=== PATIENT | male | born 1930 | race Caucasian/White ===

== ENCOUNTER 2017-06-21 11:35 | Inpatient (IN) | payer OTHER ==
--- NOTE | 2017-06-21 11:55 | EDPHY ---
H & P Stated Complaint: Balance and speech issues yesterday. sent by PCP Time Seen by Provider: 06/21/17 11:55 HPI/ROS: CHIEF COMPLAINT: Mild dysarthria, right facial weakness, slight gait imbalance HISTORY OF PRESENT ILLNESS: The patient presents to the ED with a 1 day history of mild dysarthria, right facial weakness and a slight gait imbalance. The patient reports his symptoms began at 9 o'clock in the morning yesterday. They have not resolved. The patient denies prior history of TIA or CVA. The patient denies history of hypertension or diabetes. He has a history of hyperlipidemia but is not on medications for this condition. The patient denies any history of fall or trauma. He denies headache or neck pain. The patient denies any peripheral complaints of numbness or weakness. REVIEW OF SYSTEMS: A comprehensive 10 point review of systems is otherwise negative aside from elements mentioned in the history of present illness. Source: Patient Exam Limitations: No limitations - Personal History Current Tetanus Diphtheria and Acellular Pertussis (TDAP): Yes - Medical/Surgical History Hx Asthma: No Hx Chronic Respiratory Disease: No Hx Diabetes: No Hx Cardiac Disease: No Hx Renal Disease: No Hx Cirrhosis: No Hx Alcoholism: No Hx HIV/AIDS: No Hx Splenectomy or Spleen Trauma: No Other PMH: Gerd. - Social History Smoking Status: Never smoked - Physical Exam Exam: General Appearance: Alert, no distress Eyes: Pupils equal and round no pallor or injection ENT, Mouth: Mucous membranes moist Respiratory: There are no retractions, lungs are clear to auscultation Cardiovascular: Regular rate and rhythm Gastrointestinal: Abdomen is soft and nontender, no masses, bowel sounds normal Neurological: Right facial droop, 5/5 strength bilateral upper lower extremity , sensation intact to light touch Skin: Warm and dry, no rashes Musculoskeletal: Neck is supple nontender Extremities: symmetrical, full range of motion Constitutional: Initial Vital Signs Temperature (C) 36.3 C 06/21/17 11:42 Heart Rate 85 06/21/17 11:42 Respiratory Rate 18 06/21/17 11:42 Blood Pressure 163/103 H 06/21/17 11:42 O2 Sat (%) 96 06/21/17 11:42 O2 Delivery Mode Room Air Allergies/Adverse Reactions: Penicillins Allergy (Verified 06/21/17 11:46) Home Medications: Medication Instructions Recorded Antacid 06/21/17 Medical Decision Making - Diagnostics EKG Interpretation: EKG: Complete interpretation has been separately recorded in the [facility] archive. Summary impression: Sinus rhythm Imaging Results: Imaging Impressions Brain MRI 06/21/17 12:01 Impression: 1. Acute lacunar infarct in the posterior left lentiform nuclei and posterior left internal capsule. 2. Minimal underlying periventricular and deep hemispheric white matter change that can be seen with small vessel ischemic disease. 3. Generalized cerebral atrophy. 4. Left sphenoid sinusitis. Results called and discussed with Dr. Ghanshyam Odnonell on June 21, 2017 at 1451 hours. MRI brain without contrast: Images reviewed by myself and discussed with radiologist Dr. Weaver. Patient does have a small lacunar infarcts noted in the posterior capsule. ED Course/Re-evaluation: The patient presents to the ED with a mild facial droop, slight dysarthria and subjective gait imbalance that began at 9 o'clock in the morning yesterday. The patient's NIH stroke scale is 1-2 for a slight facial droop and slight dysarthria. MRI of the brain does demonstrate a small lacunar stroke. The patient did receive a 325 mg dose of aspirin. He is noted to be in a normal sinus rhythm. The patient will be admitted to the hospital for further evaluation and risk stratification having sustained an acute stroke. Consultation was made with the hospitalist service. The patient will be admitted by Dr. Ioana Zheng. The patient is not a candidate for thrombolytics therapy based upon the timing of his symptoms. Differential Diagnosis: Differential diagnosis considered includes ischemic stroke, intracranial hemorrhage, [employer] mass, migraine variant, Barber's palsy - Data Points Laboratory Results: Laboratory Results 06/21/17 11:54 06/21/17 11:54 06/21/17 06/21/17 06/21/17 11:54 11:54 11:54 WBC 5.99 10^3/uL 10^3/uL (3.80-9.50) RBC 4.81 10^6/uL 10^6/uL (4.40-6.38) Hgb 15.2 g/dL g/dL (13.7-17.5) Hct 44.2 % % (40.0-51.0) MCV 91.9 fL fL (81.5-99.8) MCH 31.6 pg pg (27.9-34.1) MCHC 34.4 g/dL g/dL (32.4-36.7) RDW 13.2 % % (11.5-15.2) Plt Count 177 10^3/uL 10^3/uL (150-400) MPV 10.5 fL fL (8.7-11.7) Neut % (Auto) 71.0 % % (39.3-74.2) Lymph % (Auto) 18.4 % % (15.0-45.0) [place] % (Auto) 8.3 % % (4.5-13.0) Eos % (Auto) 1.3 % % (0.6-7.6) Baso % (Auto) 0.7 % % (0.3-1.7) Nucleat RBC Rel Count 0.0 % % (0.0-0.2) Absolute Neuts (auto) 4.25 10^3/uL 10^3/uL (1.70-6.50) Absolute Lymphs (auto) 1.10 10^3/uL 10^3/uL (1.00-3.00) Absolute Monos (auto) 0.50 10^3/uL 10^3/uL (0.30-0.80) Absolute Eos (auto) 0.08 10^3/uL 10^3/uL (0.03-0.40) Absolute Basos (auto) 0.04 10^3/uL 10^3/uL (0.02-0.10) Absolute Nucleated RBC 0.00 10^3/uL 10^3/uL (0-0.01) Immature Gran % 0.3 % % (0.0-1.1) Immature Gran # 0.02 10^3/uL 10^3/uL (0.00-0.10) Sodium 144 mEq/L mEq/L (135-145) Potassium 4.7 mEq/L mEq/L (3.5-5.2) Chloride 108 mEq/L mEq/L (97-110) Carbon Dioxide 23 mEq/l mEq/l (22-31) Anion Gap 13 mEq/L mEq/L (8-16) BUN 20 mg/dL mg/dL (7-23) Creatinine 1.2 mg/dL mg/dL (0.7-1.3) Estimated GFR 58 Glucose 80 mg/dL mg/dL (70-100) Hemoglobin A1c Pending Estim Average Glucose Pending Calcium 9.9 mg/dL mg/dL (8.5-10.4) Medications Given: Discontinued Medications Aspirin (Aspirin) 325 mg PO EDNOW ONE Stop: 06/21/17 14:50 Last Admin: 06/21/17 14:55 Dose: 325 mg Departure - Departure [facility] Clinical Impression: Acute ischemic stroke Condition: Good Referrals: Joe Glasgow MD [Primary Care Provider] - As per Instructions
--- NOTE | 2017-06-21 12:01 | CPEKG ---
Heart Rate: 75 RR Interval: 800 P-R Interval: 160 QRSD Interval: 86 QT Interval: 400 QTC Interval: 447 P [place]: 71 QRS [place]: -38 T Wave [place]: 28 EKG Severity - OTHERWISE NORMAL ECG - EKG Impression: SINUS RHYTHM EKG Impression: LEFT AXIS DEVIATION Electronically Signed By: Ghanshyam Odonnell 21-Jun-2017 15:08:56
[2017-06-21 12:03] LABS: PLATELET COUNT 177 10^3/uL (150-400)
[2017-06-21] MEDS ORDERED: ASPIRIN 325 MG TAB PO ONE (14:49)
[2017-06-21] MEDS ORDERED: ONDANSETRON 4 MG/2 ML VIAL IVP PRN (14:56)
[2017-06-21] MEDS ORDERED: ONDANSETRON DISINTEGRATING 4 MG TAB PO PRN (14:56)
[2017-06-21] MEDS ORDERED: LABETALOL HCL 5 MG/ML 20 ML MDV IVP PRN (14:56)
[2017-06-21] MEDS ORDERED: ACETAMINOPHEN 325 MG TAB PO PRN (14:56)
[2017-06-21] MEDS ORDERED: ATORVASTATIN CALCIUM 40 MG TAB PO SCH (15:15)
--- NOTE | 2017-06-21 15:22 | PDGENHP ---
History and Physical - Chief Complaint slurred speech - History of Present Illness 86 yo male with h/o hyperlipidemia presents with balance issues. He noticed feeling "clutzy" and had balance problems soon after waking up. His family came home later in the afternoon and when he began to speak to them he noticed he was slurring his words. He saw his PCP in [place] who promptly sent him to the ED. He says he was last normal Wednesday night. He denied focal weakness , numbness or facial asymmetry. No CP or SOB. No fiore or vision changes. In the ED, MRI showed an acute lacunar infarct. He was given a full dose aspirin and is admitted to the hospital for further management. History Information - Allergies/Home Medication List Allergies/Adverse Reactions: Penicillins Allergy (Verified 06/21/17 11:46) Home Medications: Antacid 06/21/17 [Last Taken Unknown] I have personally reviewed and updated: family history, medical history, social history, surgical history - Past Medical History hyperlipidemia Additional medical history: Pre-diabetes, borderline htn, gerd, allergies, arthritis - Surgical History Additional surgical history: small orthopedic surgeries on wrist, thumb - Family History Additional family history: brother with hypertension - Social History Smoking Status: Former smoker Alcohol Use: Rarely Drug Use: None Additional social history: quit tobacco mid s. 20-30 pack year history, smoked a pipe. Review of Systems Review of Systems: ROS: 10pt was reviewed & negative except for what was stated in HPI & below Physical Exam Physical Exam: Temp Pulse Resp BP Pulse Ox 36.3 C 66 16 152/94 H 96 06/21/17 11:42 06/21/17 14:00 06/21/17 14:00 06/21/17 14:00 06/21/17 14:00 Constitutional: no apparent distress Eyes: PERRL Ears, Nose, Mouth, Throat: moist mucous membranes Cardiovascular: regular rate and rhythym Respiratory: no respiratory distress, clear to auscultation Gastrointestinal: normoactive bowel sounds, soft, non-tender abdomen Skin: warm Musculoskeletal: full muscle strength Neurologic: AAOx3, other (+dysarthria, no aphasia, no facial asymmetry, pronator drift neg, no focal weakness) Psychiatric: interacting appropriately Lab Data & Imaging Review 06/21/17 11:54 06/21/17 11:54 WBC 5.99 10^3/uL (3.80-9.50) 06/21/17 11:54 RBC 4.81 10^6/uL (4.40-6.38) 06/21/17 11:54 Hgb 15.2 g/dL (13.7-17.5) 06/21/17 11:54 Hct 44.2 % (40.0-51.0) 06/21/17 11:54 MCV 91.9 fL (81.5-99.8) 06/21/17 11:54 MCH 31.6 pg (27.9-34.1) 06/21/17 11:54 MCHC 34.4 g/dL (32.4-36.7) 06/21/17 11:54 RDW 13.2 % (11.5-15.2) 06/21/17 11:54 Plt Count 177 10^3/uL (150-400) 06/21/17 11:54 MPV 10.5 fL (8.7-11.7) 06/21/17 11:54 Neut % (Auto) 71.0 % (39.3-74.2) 06/21/17 11:54 Lymph % (Auto) 18.4 % (15.0-45.0) 06/21/17 11:54 [place] % (Auto) 8.3 % (4.5-13.0) 06/21/17 11:54 Eos % (Auto) 1.3 % (0.6-7.6) 06/21/17 11:54 Baso % (Auto) 0.7 % (0.3-1.7) 06/21/17 11:54 Nucleat RBC Rel Count 0.0 % (0.0-0.2) 06/21/17 11:54 Absolute Neuts (auto) 4.25 10^3/uL (1.70-6.50) 06/21/17 11:54 Absolute Lymphs (auto) 1.10 10^3/uL (1.00-3.00) 06/21/17 11:54 Absolute Monos (auto) 0.50 10^3/uL (0.30-0.80) 06/21/17 11:54 Absolute Eos (auto) 0.08 10^3/uL (0.03-0.40) 06/21/17 11:54 Absolute Basos (auto) 0.04 10^3/uL (0.02-0.10) 06/21/17 11:54 Absolute Nucleated RBC 0.00 10^3/uL (0-0.01) 06/21/17 11:54 Immature Gran % 0.3 % (0.0-1.1) 06/21/17 11:54 Immature Gran # 0.02 10^3/uL (0.00-0.10) 06/21/17 11:54 Sodium 144 mEq/L (135-145) 06/21/17 11:54 Potassium 4.7 mEq/L (3.5-5.2) 06/21/17 11:54 Chloride 108 mEq/L (97-110) 06/21/17 11:54 Carbon Dioxide 23 mEq/l (22-31) 06/21/17 11:54 Anion Gap 13 mEq/L (8-16) 06/21/17 11:54 BUN 20 mg/dL (7-23) 06/21/17 11:54 Creatinine 1.2 mg/dL (0.7-1.3) 06/21/17 11:54 Estimated GFR 58 06/21/17 11:54 Glucose 80 mg/dL (70-100) 06/21/17 11:54 Calcium 9.9 mg/dL (8.5-10.4) 06/21/17 11:54 Visualized and Interpreted EKG results: Yes EKG Interpretation: Positive for: normal sinsus rhythm Assessment & Plan Assessment: Acute CVA - Last seen normal >24 hrs prior to presentation. Mild dysarthria and gait instability persist. NIHSS 3. MRI showed acute lacunar infarcts. Discussed with Dr. Vargas. -admit to neuro unit -CTA head and neck now -received full dose ASA, will continue daily -check lipid panel in am, though pt refusing statin (states has tried 3 and gets leg cramps) -tele monitoring, likely warrants outpt cardiac event monitor at d/c if no A fib seen here -permissive htn, tx for SBP >220, DBP >120, will likely need anti- hypertensives at d/c with goal BP <140/90 -echo pending -neuro checks, swallow screen, PT/OT planned -neurology consult in am Hypertension - permissive hypertension for now as above with PRN Labetalol for BP >220/120 Arthritis - pt has taken regular NSAID's for pain. Discussed increased bleeding risk with addition of ASA -scheduled high dose tylenol, defer NSAID's for now Pre-diabetes - presenting BG 80. Not on insulin or oral hypoglycemics -send a1c Full code DVT PPLX - Lovenox Dispo - obs
[2017-06-21] MEDS ORDERED: FAMOTIDINE 20 MG TAB PO PRN (16:47)
[2017-06-21] MEDS ORDERED: IOPAMIDOL (ISOVUE 370) 100 ML BTL IV ONE (16:52)
--- NOTE | 2017-06-21 17:56 | ECHO ---
[email or web address] [address] [address] Main: [phone] Fax: [email or web address] Echocardiogram Name: CLEVELAND TRINIDAD MR#: [id number] Study Date: 06/21/2017 Study Time: 03:54 PM Date of : 1930 Age: 86 year(s) Height: 165.1 cm (65 in.) Weight: 54.43 kg (120 lb.) BSA: 1.59 m2 Gender: Male Examination: Echo Indication: Ischemic stroke Image Quality: Contrast: Requested by: Ioana Zheng BP: / Heart Rate: Rhythm: Indication: Ischemic stroke Procedure Staff Food Safety Scientist: Maria E Ramírez [facility] Reading Physician: Shereen Solomon MD Requesting Provider: Conclusions: Normal size left ventricle. Mild concentric LV hypertrophy. Normal global systolic LV function. The ejection fraction is estimated to be 65-70 %. No regional wall motion abnormality. An agitated saline study was performed and was negative for intracardiac shunting. Mild tricuspid regurgitation is present. The pulmonary artery pressure is normal. There is no previous echocardiogram for comparison. Measurements: Chambers Valvular Assessment AV/MV Valvular Assessment TV/PV Normal Normal Normal Name Value Range Name Value Range Name Value Range Ao Yaneli (MM): 3.4 cm (2.2 cm-3.7 AV Vmax: 1.03 m/s (1 m/s-1.7 TR Vmax: 2.69 mm/s ( - ) cm) m/s) TR PGmax: 29 mmHg ( - ) IVSd (2D): 0.9 cm (0.6 cm-1.1 AV maxP mmHg ( - ) syst. PAP: 34 mmHg ( - ) cm) AV meanP mmHg ( - ) LVDd (2D): 4.0 cm (4.2 cm-5.9 cm) LVDs (2D): 2.7 cm (2.1 cm-4 cm) LVPWd (2D): 1.0 cm (0.6 cm-1 cm) LVEF (MOD4): 63 % (>=55 %) EF Range: 65-70 % Continued Measurements: Chambers Valvular Assessment AV/MV Valvular Assessment TV/PV Patient: CLEVELAND TRINIDAD Study Date: 06/21/2017 Page 1 of 2 03:54 PM Name Value Name Value Name Value LADs: 2.8 cm MV A' Septal: 0.69 m/s CVP (est.): 5 mmHg Additional Vessels Name Value Ao Ascendin.6 cm Findings: Left Ventricle: Normal size left ventricle. Mild concentric LV hypertrophy. Normal global systolic LV function. The ejection fraction is estimated to be 65-70 %. No regional wall motion abnormality. Right Ventricle: Normal size right ventricle. Normal RV function. Left Atrium: The left atrium is normal in size. An agitated saline study was performed and was negative for intracardiac shunting. Right Atrium: The right atrium is normal in size. Mitral Valve: Mild mitral annular calcification. Trivial mitral valve regurgitation. Aortic Valve: The aortic valve is normal in appearance and function. Tricuspid Valve: The tricuspid valve is normal in appearance and function. Mild tricuspid regurgitation is present. The pulmonary artery pressure is normal. Pulmonic Valve: The pulmonic valve is normal in appearance and function. Mild pulmonic valve regurgitation is noted. Aorta: The aorta is normal. Pericardium: No pericardial effusion. (No Signature Object) Patient: CLEVELAND TRINDIAD Study Date: 06/21/2017 Page 2 of 2 03:54 PM [id number]
[2017-06-21] MEDS: ACETAMINOPHEN 500 MG TAB PO SCH (17:57)
[2017-06-22] MEDS: ACETAMINOPHEN 500 MG TAB PO SCH ×2 (00:55→09:24)
--- NOTE | 2017-06-22 08:19 | GCON ---
[f rep st] CONSULTATION NEUROLOGIC CONSULTATION REFERRING PHYSICIAN: Ioana Zheng MD HISTORY: The patient is an 86-year-old gentleman who is presenting with a chief complaint of slurred speech. The onset of his deficits was 48 hours ago. He had gotten up two2 days ago and was able to walk his dog, but knew he felt a little bit dizzy and thought he was a little discoordinated with hi s hands. He could not notice a clear-cut asymmetry. He then recognized he had some mild slurring of speech. His came home and definitely knew something was abnormal at 5 p.m. that day. He talke d to the primary care provider yesterday and he had advised that the patient go to the emergency room for evaluation. He is followed by Dr. Glasgow in [place] where the patient lives and is retired and fully independent. He has never had any TIA or prior stroke. He says that his symptoms feel abo ut the same today. When he came to the hospital, he had a brain MRI which showed an acute small isch emic infarction in the left basal ganglia region just lateral to the thalamus. He has subsequently c ontinued with about the same symptoms. He denies any headache. No chest pain, palpitations, or shor tness of breath. No exacerbating or alleviating factors for these symptoms. He has had additional workup with echocardiogram, which was unremarkable, carotid ultrasound showing no hemodynamically significant stenoses and CT angiogram of the head and neck showing no large vessel occlusions or significant anomalies other than some mild carotid plaquing. His laboratory studies are notable for LDL cholesterol of 72, otherwise unremarkable. He has not yet had physical, occupational, speech therapy consultations. Otherwise, a 10-point review of systems was completed and unremarkable except for that noted above. Past medical history of prediabetes, borderline hypertension, reflux, prominent osteoarthritis and hi story of hyperlipidemia. In the past he says he tried at least 3 different statins, but all of them caused muscle cramps or pain, so he has not been considered a good candidate for that. He has had so me orthopedic surgery on his left wrist and thumb recently. Family history of hypertension. He is a former smoker. He is retired from office work. Rare alcohol. Lives in [place] and [facility] independently. He has prior smoking of a pipe, 20-30 pack year history. He does not take daily aspirin, but he says he takes a lot of anti-inflammatory for his chronic arthritis. Otherwise, he wi ll use Zantac at home, Flonase nasal spray, Zyrtec. He has now been started on a 325 mg aspirin gabrielle y. Allergies to penicillins and shellfish. On his current physical examination, blood pressure is 133/80, pulse of 67, respiration 19, temperatu re 36.3. In general, he is well developed, in no acute distress. Eyes are clear. Neck is supple wi th no bruits or masses. Cardiac exam is regular rate and rhythm. No murmur. Extremities have no cy anosis or edema. He is awake, alert, and oriented to person, place, and time and general situation. He has normal concentration, attention, as well as recent and remote memory preserved. Good general fund of knowledge. No language impairments. Pupils are 2 mm and reactive. Unremarkable fundi. Ex traocular movements are intact. No visual field loss. Normal facial sensation, but he has a mild ri ght lower facial droop and a mild dysarthria. The palate elevates symmetrically. Tongue protrudes m idline. Hearing is preserved. No weakness of head turning or shoulder shrug. Motor exam normal mus douglas bulk and tone with 5/5 strength and some mild tremulousness bilaterally which he says he has had most of his life. He is not ataxic on [id number]. The reflexes are a little more brisk on the r ight than the left with equivocal Babinski sign on the right. Sensation is preserved bilaterally to temperature, light touch. Diagnostic studies are outlined above. IMPRESSION: The patient has suffered an acute ischemic infarction, most likely due to small-vessel d isease. No evidence of large vessel disease of significance on the workup and the echocardiogram huber ws no embolic source, although it was not a bubble study. He has a low LDL cholesterol. I believe nick torrez should continue on aspirin 81 mg daily. We are not going to prescribe a statin because he has trie d three and has adverse reactions to them, but fortunately has a very low LDL already. If he is seen by Physical, Occupational and Speech Therapy and they do not feel there are any inpatient needs, the n he should be able to be discharged later today with outpatient followup with Dr. Glasgow and he ca n follow up with me as needed if further questions arise. He understands the importance of returning to the hospital should there be any acute changes. His NIH stroke scale is 2. /[id number]/MODL
[2017-06-22] MEDS ORDERED: ASPIRIN 325 MG TAB PO SCH (09:00)
[2017-06-22 11:42] VITALS: BP 129/75
[2017-06-22] MEDS ORDERED: FLUTICASONE NASAL 120 SPRAYS/16 GM MDI EACHNARE PRN (12:12)
--- NOTE | 2017-06-22 12:22 | HOSPPROG ---
Hospitalist Progress Note Assessment/Plan: Patient is an 86-year-old male who presented the emergency room with balance issues. Then on the same day he was seen by his family and they noted that he was slurring his words. When he saw his primary care provider, he promptly sent him to the emergency room. He had an MRI performed which showed an acute lacunar infarct. He was admitted for further care. Today is my 1st encounter with the patient. Reviewed his care *Acute CVA - Last seen normal >24 hrs prior to presentation -MRI showed acute lacunar infarcts -aspirin, bp is stable -echo stable -doesn't tolerate statin therapy (has tried 3 different ones) -tele shows sinus Hypertension - permissive hypertensioN -not on any medications Arthritis - pt has taken regular NSAID's for pain. Discussed increased bleeding risk with addition of ASA -encouraged him to avoid ibuprofen due to increase risk of stroke and heart attack Pre-diabetes -A1c is 5.8 Full code DVT PPLX - Lovenox *Plan: dc home w close f/u with Dr Glasgow Subjective: Todd is feeling well, would like to go home. Objective: Vital Signs Temp Pulse Resp BP Pulse Ox 36.6 C 75 17 129/75 H 96 06/22/17 11:41 06/22/17 11:41 06/22/17 11:41 06/22/17 11:41 06/22/17 11:41 06/21/17 06/22/17 06/23/17 05:59 05:59 05:59 Intake Total 800 Balance 800 - Physical Exam Constitutional: no apparent distress, appears nourished Eyes: PERRL Ears, Nose, Mouth, Throat: moist mucous membranes, hearing normal Cardiovascular: regular rate and rhythym Respiratory: no respiratory distress Gastrointestinal: normoactive bowel sounds Musculoskeletal: full muscle strength Neurologic: AAOx3, sensation intact bilaterally, CN II-XII Intact, No numbness, No pronator drift, No facial droop Psychiatric: interacting appropriately, not anxious ICD10 Worksheet Patient Problems: Problems Problem Status Onset Acute ischemic stroke Acute
--- NOTE | 2017-06-22 13:02 | PDMN ---
Medical Necessity Medical necessity: Patient meets inpatient criteria per [facility] note and [facility] Stroke: Ischemic - 2 days - (acute lacunar infarct on brain MRI.)
--- NOTE | 2017-06-22 13:51 | GDS ---
[f rep st] DISCHARGE SUMMARY DISCHARGE DIAGNOSES: 1. Acute ischemic stroke. 2. Hypertension. 3. Arthritis. 4. Pre-diabetes. CONSULTATION: Dr. Celestino Vargas. HISTORY OF PRESENT ILLNESS: Briefly, the patient is an 86-year-old male who presented to the emergency room with balance issues. During that day, he was seen by his family and they noticed that he had trouble with balance, but they also noticed that he was slurring his words. They brought him to his primary care provider, who promptly sent him to the ER. He was not a TPA candidate. He had an MRI performed which showed an acute lacunar infarct. He was admitted for further care. HOSPITAL COURSE: 1. Acute CVA. His MRI showed an acute lacunar infarct. His echocardiogram shows no embolic source. Carotid ultrasound showed no significant stenosis. His CT angiogram of the head and neck showed no large vessel occlusions or significant anomalies other than some mild necrotic plaquing. His LDL cholesterol is 72. He was seen and evaluated by Physical Therapy, Occupational Therapy who thought he was stable. He is anxious to be going home. I have recommended that he call 911 if he should ever have any stroke-like symptoms. He does not tolerate statin therapy. He has tried 3 different. He will continue aspirin therapy. 2. Hypertension. He is not on the medications. His blood pressure has been stable. 3. Arthritis. He takes NSAIDs regularly for pain. I explained to him that he is at increased bleeding risk with the use of aspirin and also told him there is possible increased risk of stroke and heart attack with the use of the NSAIDs. He will do a trial off Tylenol. Recommended he talk to his doctor about possibly trying tramadol. 4. Pre-diabetes. A1c is 5.8. DISCHARGE CONDITION: Stable. Blood pressure is 129/75, heart rate 75, respiratory rate 17, O2 sats on room air 96%, temperature is 36.6 Celsius. MEDICATIONS AT DISCHARGE: Please see the EMR. DISCHARGE INSTRUCTIONS: 1. Take aspirin daily as ordered. 2. To follow up with Dr. Glasgow. 3. Return to the ER if he has any stroke-like symptoms. /[id number]/MODL MTDD
--- NOTE | 2017-06-22 16:02 | ASMTLACE ---
LACE Length of stay for Answers: 1 day current admission Acuity / Level of Answers: Yes Care: Did the patient have an inpatient admission? Comorbidities - select Answers: Diabetes (uncontrolled or all that apply controlled) Other Notes: GERD # of Emergency department Answers: 1-2 visits in the last 6 months Score: 7 Date Signed: 06/22/2017 04:02 PM Electronically Signed By:Isabella Lund RN
--- NOTE | 2017-06-22 16:05 | ASMTCMCOM ---
CM Note CM Note Notes: Attempted to meet with patient regarding discharge plan of care, busy with nurse. Case Management unable to speak with patient as he left before CM could get back in room. Per RN, patient was moving independently and had a very supportive family, cleared by therapy. No needs identified at this time. Date Signed: 06/22/2017 04:04 PM Electronically Signed By:Isabella Lund RN
[2017-06-23] MEDS ORDERED: FAMOTIDINE 20 MG TAB PO SCH (09:00)
[2017-06-23] MEDS ORDERED: CETIRIZINE 10 MG TAB PO SCH (09:00)
[2017-06-23] MEDS ORDERED: NON-FORMULARY NEW DRUG (Ranitidine Hcl [Zantac 75] 75 MG) PO SCH (09:00)
== END 2017-06-22 13:53 | disposition home or self-care (01) | DRG 66 ==
LOC: OBSVTOIN 14:54 → F3N 16:36
PROVIDERS: ADMIT Hospitalist; ATTEND Hospitalist
DX: I63.9 Cerebral infarction, unspecified (principal); R29.702 NIHSS score 2; I10 Essential (primary) hypertension; M19.90 Unspecified osteoarthritis, unspecified site; R73.03 Prediabetes; E78.5 Hyperlipidemia, unspecified; Z87.891 Personal history of nicotine dependence
CPT/HCPCS: 92610-GN; 97161-GP; 97165-GO; Q9967